=== PATIENT | female | born 2000 | race Hispanic/Latino ===

== ENCOUNTER 2018-01-26 17:46 | Emergency (ER) | payer MEDICAID ==
[2018-01-26 17:57] VITALS: RESP 18; O2SAT 100; BMI 27.1
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
[2018-01-26 21:46] VITALS: BP 120/68; PULSE 82; TEMP 98.1
--- NOTE | 2018-01-27 09:54 | RAD ---
Date of service: 01/26/2018 PROCEDURE: LEFT HIP WITH PELVIS RADIOGRAPHS HISTORY: hip pain COMPARISON: None available. TECHNIQUE: Frontal views of the pelvis of been submitted as well as left hip with frog-leg lateral view left hip joint. FINDINGS: Pelvic ring appears intact without definite fracture. Patient slightly rotated toward the right distorting frontal view somewhat. No definite destructive bony lesion identified. Bilateral sacroiliac joints appear unremarkable with the left hip joint intact. No dislocation of the left hip identified or left hip fracture evident. Pubic bones appear intact including pubic symphysis. Sacrum appears unremarkable including sacroiliac arcades. No suspicious iliac bone findings. IMPRESSION: No definite fracture dislocation left hip joint with pelvic ring grossly intact as imaged. If symptoms persist or worsen consider follow-up left hip MRI.
--- NOTE | 2018-01-27 09:54 | RAD ---
Date of service: 01/26/2018 PROCEDURE: Radiographs of the Lumbar Spine. HISTORY: back pain COMPARISON: No prior. FINDINGS: BONES: Normal alignment. No listhesis. No fracture. No definite spondylolysis. DISC SPACES: Unremarkable. OTHER FINDINGS: None. IMPRESSION: Unremarkable radiographs of the lumbar spine.
== END 2018-01-26 20:15 | disposition home or self-care (01) ==
LOC: ED 17:46
DX: M54.5 Low back pain (principal); M25.552 Pain in left hip

== ENCOUNTER 2018-06-01 18:18 | Emergency (ER) | payer MEDICAID | END 2018-06-01 22:36 | disposition home or self-care (01) | LOC: ED 18:18 ==